=== PATIENT | female | born 1980 | race Caucasian/White ===

== ENCOUNTER 2019-12-19 13:52 | Emergency (ER) | payer OTHER ==
[~2019-12-19] VITALS: Ht 154.9 cm; Wt 76.3 kg
--- NOTE | 2019-12-19 15:09 | NUR ---
AIRLINE MANAGER: PT TO ROOM VIA WHEELCHAIR AT THIS TIME. NELIL
[2019-12-19] MEDS ORDERED: HYDROcodone/APAP 5/325 TABLET ONE (15:20)
[2019-12-19] MEDS ORDERED: HYDROcodone/APAP 5/325 TABLET PO ONE (15:30)
[2019-12-19 16:23] VITALS: BP 133/86
--- NOTE | 2019-12-19 17:22 | NUR ---
CARE FOR DC ONLY PROVIDED. PT SITTING UP ON CHAIR. SPLINT IN PLACE. CMS INTACT. NO IV TO DC. REVIEWED DC INSTRUCTIONS WITH PT, UNDERSTANDING VERBALIZED. PT LEFT AMB, GAIT STEADY.
== END 2019-12-19 17:24 | disposition home or self-care (01) ==
LOC: ED 15:30
DX: S92.254A Nondisplaced fracture of navicular [scaphoid] of right foot, initial encounter for closed fracture (principal); S00.83XA Contusion of other part of head, initial encounter; S00.33XA Contusion of nose, initial encounter; R51 Headache; W01.0XXA Fall on same level from slipping, tripping and stumbling without subsequent striking against object, initial encounter; Y93.89 Activity, other specified; Y92.410 Unspecified street and highway as the place of occurrence of the external cause; Y99.8 Other external cause status
CPT/HCPCS: 29125; 70160; 99284

== ENCOUNTER 2020-10-28 10:21 | Day surgery (SDC) | payer OTHER ==
[2020-10-25 16:28] LABS: ALANINE AMINOTRANSFERASE 29 U/L (12-78); ALBUMIN 3.5 g/dL (3.4-5.0); ANION GAP 4 mmol/L (5-15); CALCIUM 8.6 mg/dL (8.5-10.1); CHLORIDE 104 mmol/L (98-107); CREATININE 0.69 mg/dL (0.55-1.02)
[2020-10-25 16:30] LABS: ALKALINE PHOSPHATASE 50 U/L (45-117); BILIRUBIN,TOTAL 0.3 mg/dL (0.2-1.0); TOTAL PROTEIN 7.2 g/dL (6.4-8.2)
[~2020-10-28] VITALS: Ht 154.9 cm; Wt 70.0 kg
[~2020-10-28 10:21] MED LIST: CHOL10003 PO; HYDR25TA6 PO
[2020-10-28] MEDS ORDERED: FENTANYL PF 250 MCG/5ML ONE (10:47)
[2020-10-28] MEDS ORDERED: ZYRTEC NS (10:52)
[2020-10-28] MEDS ORDERED: SINGULAIR PO (10:52)
[2020-10-28] MEDS ORDERED: CHLORHEXIDINE 15 ML UDC PO ONE (11:00)
[2020-10-28] MEDS ORDERED: LACTATED RINGERS 1,000 ML IV SCH (11:00)
[2020-10-28 11:18] VITALS: BP 125/87
[2020-10-28] MEDS ORDERED: EPINEPHRINE 1 MG/ML, 1ML ONE (11:48)
[2020-10-28] MEDS ORDERED: BACITRACIN OINT 500U/GM, 15 GM ONE (11:48)
[2020-10-28] MEDS ORDERED: FLUORESCEIN SODIUM 500 MG/5 ML ONE (11:48)
[2020-10-28] MEDS ORDERED: EPINEPHRINE TOPICAL SOLN 1 MG/ML, 30ML ONE (11:48)
[2020-10-28] MEDS ORDERED: OXYMETAZOLINE NASAL SPRAY 0.05%,30ML ONE (11:48)
[2020-10-28] MEDS ORDERED: LIDOCAINE 1%, 20ML ONE (11:48)
[2020-10-28] MEDS ORDERED: BACITRACIN 50,000 UNIT ONE (11:49)
[2020-10-28] MEDS ORDERED: REMIFENTANIL 2 MG ONE (11:52)
[2020-10-28] MEDS ORDERED: CEFAZOLIN 1,000 MG ONE (12:32)
[2020-10-28] MEDS ORDERED: DEXAMETHASONE 4 MG/ML, 1ML ONE (12:32)
[2020-10-28] MEDS ORDERED: PROPOFOL 10 MG/ML, 20ML ONE (12:32)
[2020-10-28] MEDS ORDERED: METOCLOPRAMIDE 5 MG/ML, 2ML ONE (12:32)
[2020-10-28] MEDS ORDERED: SUCCINYLCHOLINE 20 MG/ML, 10ML ONE (12:32)
[2020-10-28] MEDS ORDERED: ONDANSETRON 2MG/ML, 2ML ONE (12:32)
[2020-10-28] MEDS ORDERED: ROCURONIUM 10 MG/ML,10ML ONE (12:32)
[2020-10-28] MEDS ORDERED: LABETALOL 5MG/ML, 20ML IV PRN (15:00)
[2020-10-28] MEDS ORDERED: MEPERIDINE/PF 25MG/0.5ML IVPush PRN (15:00)
[2020-10-28] MEDS ORDERED: hydrALAzine 20 MG/ML, 1ML IV PRN (15:00)
[2020-10-28] MEDS ORDERED: FENTANYL PF 100 MCG/2ML IV PRN (15:00)
[2020-10-28] MEDS ORDERED: PROMETHAZINE 25 MG/ML, 1ML IVPush PRN (15:00)
[2020-10-28] MEDS ORDERED: ACETAMINOPHEN 325 MG TABLET PO PRN (15:00)
[2020-10-28] MEDS ORDERED: LORazepam 2 MG/ML, 1ML IVPush PRN (15:00)
[2020-10-28] MEDS ORDERED: HYDROmorphone 1 MG/ML, 1ML INJ IVPush PRN (15:00)
[2020-10-28] MEDS ORDERED: METHOCARBAMOL 1,000 MG in DEXTROSE 5% 100 ML IV PRN (15:00)
[2020-10-28] MEDS ORDERED: OXYcodone 5 MG/5 ML ORAL.SOL UDC PO PRN (15:00)
[2020-10-28] MEDS ORDERED: ONDANSETRON 2MG/ML, 2ML IVPush PRN (15:00)
[2020-10-28] MEDS ORDERED: EPHEDRINE 50 MG/ML, 1ML IVPush PRN (15:00)
[2020-10-28] MEDS ORDERED: MIDAZOLAM 1 MG/ML, 2ML ONE (15:54)
[2020-10-28] MEDS ORDERED: FENTANYL PF 100 MCG/2ML ONE (16:11)
[2020-10-28] MEDS ORDERED: OXYcodone 5 MG/5 ML ORAL.SOL UDC ONE (16:12)
[2020-10-28] MEDS ORDERED: hydrALAzine 20 MG/ML, 1ML ONE (16:33)
== END 2020-10-28 18:33 | disposition home or self-care (01) ==
LOC: OUT 10:21
PROVIDERS: ATTEND Student in an Organized Health Care Education/Training Program
DX: J34.2 Deviated nasal septum (principal); J34.3 Hypertrophy of nasal turbinates; J35.01 Chronic tonsillitis; J32.0 Chronic maxillary sinusitis; J32.2 Chronic ethmoidal sinusitis; J34.89 Other specified disorders of nose and nasal sinuses; Z20.822 Contact with and (suspected) exposure to COVID-19
CPT/HCPCS: 30140; 30520; 36415; 42826; 80053; 81025; 88304; J0171; J0330; J0360; J0690; J1100; J2250; J2405; J2704; J2765; J3010; J7120; U0003; U0005; 85347